=== PATIENT | female | born 1965 | race Caucasian/White ===

== ENCOUNTER 2025-07-11 13:05 | Outpatient (AMB) | payer OTHER, SELFPAY ==
--- OUTSIDE RECORDS SUMMARY | 2025-07-06 10:10 | XMS_ITS | Encounter Summary ---
Author Organization [employer] Address [address] [place] [address] [address] [place] [address] Care Team Providers Care Option Trader Name Role Phone Unavailable Primary Care Provider Unavailabl e Reason for Visit * Reason Comments Routine Cleaning Dental Exam Encounter Details Date Type Department Care Team (Late st Contact Info) Description 07/06/2025 10:10 AM EDT Office Visit [facility] DENTAL [address] [place] [address] Maribell Cordero Encounter for dental examination (Primary Dx); Periodontal disease Social History Tobacco Use Types Packs/Day Years Used Date Smoking Tobacco: Never Smokeless Tobacco: Never Tobacco Cessation:Counseling Given: Not Answered Alcohol Use Standard Drinks/Week Comments Never 0 (1 standard drink = 0.6 oz pur e alcohol) Comments Unknown Sex and Gender Information Value Date Recorded Sex Assigned at Female 04/09/2023 12:08 PM EDT Legal Sex Female 5:35 PM EDT Gender Identity Female 04/09/2023 12:08 PM EDT Sexual Orientation Choose not to disclose 2022 12:08 PM EDT documented as of this encounter Last Filed Vital Signs Vital Sign Reading Time Taken Comments Blood Pressure 138/85 07/06/2025 10:29 AM EDT Pulse 82 07/06/2025 10:29 AM EDT Temperature - - Respiratory Rate - - Oxygen Saturation - - Inhaled Oxygen Concentration - - Weight - - Height - - Body Mass Index - - documented in this encounter Progress Notes * Maribell Cordero - 07/06/2025 10:10 AM EDT Prophy + FLAVIA Subjective: Chief Complaint (CC):--routine cleaning Medical History: Reviewed, Objective: Oral Hygiene Status: Fair Gingival Description: pink inflamed, with mild bleeding on probing Oral Cancer Exam: within normal limits Periodontal Diagnosis: STAGE II grade 2 chronic periodontitis Calculus: Moderate Supra / Subgingival Radiographs Taken: Type - none Caries/Radiographic Findings: as on the chart Vital Signs: BP-138/85 HR-82 Assessment: Risk Factors: None Plan / Treatment Provided: Hygiene Treatment: Full-mouth prophylaxis performed using ultrasonic and hand instruments Teeth polished with Pumice Interdental flossing completed Oral hygiene instructions given and reinforced Brushing technique, and flossing Evaluation/Treatment Planning (Dentist): Dentist not available. Exam not done. Recommendations: FLAVIA Follow-up in 6 months Patient Tolerance: Good Post-Treatment Instructions Given: Yes Patient did great Maribell Cordero documented in this encounter Plan of Treatment Upcoming Encounters Date Type Department Care Team (Late st Contact Info) Description 01/10/2026 2:00 PM EDT Office Visit [facility] DENTAL [address] [place] [phone] Maribell Cordero Scheduled Orders Name Type Priority Associated Diagnoses Orde r Schedule PROPHYLAXIS - ADULT Dental Routine 1 Occ urrences starting 07/06/2025 PERIODIC ORAL EVALUATION - ESTABLISHED PATIENT Dental Routine 1 Occurren carol starting 07/06/2025 documented as of this encounter Procedures Procedure Name Priority Date/Time Associated Diagnosis Comments Full PROPHYLAXIS - ADULT Routine 025 10:10 AM EDT ORAL HYGIENE INSTRUCTIONS Routine 2024 10:10 AM EDT documented in this encounter Visit Diagnoses Diagnosis Encounter for dental examination- Primary Periodontal disease Unspecified gingival and periodontal disease documented in this encounter
--- NOTE | 2025-07-11 13:21 | MHC.PC.OV ---
Vital Signs 07/11/25 13:23 Height 5 ft 5.35 in Weight 163 lb 2 oz BMI 26.9 BP 118/72 Blood Pressure Location Rt brachial Position Sitting Respiration 12 Pulse 88 Pulse Source Pulse Oximeter Temp 97.2 F Temp Source Oral Pulse Oximetry (%) 98 Oxygen Delivery Method Room Air Intake Visit Reasons: CPE? Intake Note: New patient visit Online Project Manager Required: No Allergies No Known Allergies Allergy (Verified 07/11/25 12:41) Tobacco use date assessed: 07/11/25 Dental Screening Dental Screen Date: 07/11/25 Did you have a dental visit in the last 12 months?: Yes Did you have a dental problem in the last 6 months where you did not have access to dental care?: No Was dental information given to patient?: Patient has dentist HPI HPI Comments History of Present Illness Details The patient is a 60 year old female with a past medical history of HRT due to menopause symptoms, anxiety & depression, migraine, post covid fatigue, back pain presenting to [facility] care. Transfer from Dr Newman Frustrated by weight gain over the past few years. Gaining 3-4 pounds a year despite watching calories and biking/spinning Migraine -ceased after starting HRT. Following with Dr Barber at [facility]. Mammo-Jordan Colonoscopy-8 years ago-Jordan. Shingrix-received two doses ROS CONSTITUTIONAL: Denies weight loss, fever and chills. HEENT: Denies changes in vision and hearing. RESPIRATORY: Denies SOB and cough. CV: Denies palpitations and CP GI: Denies abdominal pain, nausea, vomiting and diarrhea. : Denies dysuria and urinary frequency. MSK: Denies new myalgia and joint pain. SKIN: Denies rash and pruritus. NEUROLOGICAL: Denies headache PSYCHIATRIC: Denies recent changes in mood. PHYSICAL EXAM: GENERAL: Alert and oriented x 3. NAD EYES: EOMI. Anicteric. HENT: Moist mucous membranes. No scleral icterus. No cervical lymphadenopathy. LUNGS: Clear to auscultation bilaterally. CARDIOVASCULAR: Regular rate and rhythm. No murmur. No JVD. ABDOMEN: Soft, non-tender +bs EXTREMITIES: No edema. Non-tender. SKIN: No rashes or lesions. Warm. NEUROLOGIC: No focal neurological deficits. CN II-XII grossly intact PSYCHIATRIC: Cooperative. Appropriate mood and affect [facility] Surgical History (Updated 07/11/25 @ 13:27 by Ashlee Galvan CMA) History of tonsillectomy No pertinent past surgical history Family History (Updated 07/11/25 @ 13:30 by Ashlee Galvan CMA) Mother Stroke Cardiovascular disease Father Heart attack Cardiovascular disease Brother Heart attack Stroke Maternal Grandmother Cardiovascular disease Maternal Grandmother No problems noted. 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 Current occupational exposures/hazards: No Cognitive needs: No Hearing needs: No Vision needs: Yes (glasses) Questionnaire Thrive Questionnaire Date Thrive assessed: 07/09/25 I am a: Patient What is your living situation today?: I have a steady place to live Within the past 12 months, did the food you bought not last and you didn't have the money to get more?: Never true Within the past 12 months, did you worry whether your food would run out before you got money to buy more?: Never true Do you have trouble paying for medicines?: No Do you have trouble getting transportation to medical appointments?: No Do you have trouble paying your heating and electricity bill?: No Do you have trouble taking care of your child, family member or friend?: No Do you have trouble with day-to-day activities such as bathing, preparing meals, shopping, managing finances, etc.?: No Are you currently unemployed and looking for a job?: No Are you interested in more education?: No Please select the resources that you would like help with: None Currently or been in a relationship where the following occur: No concerns reported THRIVE Score: 0 AUDIT C Alcohol Use Questionnaire (AUDIT-C) 1. How often do you have a drink containing alcohol?: 2-3 times a week 2. How many drinks containing alcohol do you have on a typical day when you are drinking?: 1 or 2 3. How often do you have six or more drinks on one occasion?: Never Total Score: 3 KASSI-7 AMB Questionnaire KASSI-7 Date KASSI - 7 assessed: 07/11/25 Feeling nervous, anxious, or on edge: 0 = Not at all Not being able to stop or control worryin = Not at all Worrying too much about different things: 0 = Not at all Trouble relaxin = Not at all Being so restless that it is hard to sit still: 0 = Not at all Becoming easily annoyed or irritable: 0 = Not at all Feeling afraid as if something awful might happen: 0 = Not at all Total KASSI-7 score (0-4 normal; 5-9 mild; 10-14 moderate; 15-21 severe): 0 Source: Developed by Drs. Jacobo Riley, Veronica He, James Felder and colleagues, with an educational samuel from [employer]. KASSI-7 Assessment Billing KASSI-7 Assessment Tool: KASSI-7 Assessment 79650 Physical exam (Primary Care) Vital Signs: Last Vital Signs Temp 97.2 F 07/11/25 13:23 Pulse 88 07/11/25 13:23 Resp 12 07/11/25 13:23 BP 118/72 07/11/25 13:23 Pulse Ox 98 07/11/25 13:23 Oxygen Delivery Method Room Air 07/11/25 13:23 BMI result Body Mass Index 26.9 Tobacco/Smoking Status: Tobacco use Status Tobacco use date assessed 07/11/25 07/11/25 13:31 Patient Tobacco Use Status Never used Tobacco 07/11/25 13:31 e-Cigarette/Vaping Use Never Used 07/11/25 13:31 Thrive Assessment: Date of Thrive Assessment Date Thrive assessed 07/09/25 07/11/25 13:31 Currently or been in a relationship where the following occur: No concerns reported Coding Level of Care Code New Pt Level 4 (38387) Complex EM visit Add On G2211 Diagnoses Weight gain R63.5 Menopause syndrome N95.1 History of migraine Z86.69 Additional Codes KASSI-7 Assessment Billing - KASSI-7 Assessment Tool: KASSI-7 Assessment 58104 ([id number]) Assessment & Plan Assessment & Plan (1) Weight gain: Code(s): R63.5 - Abnormal weight gain Category: Medical (2) Menopause syndrome: Code(s): N95.1 - Menopausal and female climacteric states Category: Medical (3) History of migraine: Code(s): Z86.69 - Personal history of other diseases of the nervous system and sense organs Category: Medical Plan 60 year old female presenting to [facility] care Past medical, surgical, social reviewed Weight gain-Discussed increasing exercise or cutting back slightly on calories. Declines glp, phentermine Labs ordered Mammo UTD per patient. follows with street engineer Orders: Orders Lipid Panel Today M54.50 - Low back pain, unspecified, N95.1 - Menopausal and female climacteric states, R63.5 - Abnormal weight gain, Z13.220 - Encounter for screening for lipoid disorders, Z86.69 - Personal history of other diseases of the nervous system and sense organs TSH reflex Free T4 Today M54.50 - Low back pain, unspecified, N95.1 - Menopausal and female climacteric states, R63.5 - Abnormal weight gain, Z13.220 - Encounter for screening for lipoid disorders, Z86.69 - Personal history of other diseases of the nervous system and sense organs Complete Blood Count Auto Diff Today M54.50 - Low back pain, unspecified, N95.1 - Menopausal and female climacteric states, R63.5 - Abnormal weight gain, Z13.220 - Encounter for screening for lipoid disorders, Z86.69 - Personal history of other diseases of the nervous system and sense organs Comprehensive Met. Panel Today M54.50 - Low back pain, unspecified, N95.1 - Menopausal and female climacteric states, R63.5 - Abnormal weight gain, Z13.220 - Encounter for screening for lipoid disorders, Z86.69 - Personal history of other diseases of the nervous system and sense organs Hemoglobin A1c Today M54.50 - Low back pain, unspecified, N95.1 - Menopausal and female climacteric states, R35.89 - Other polyuria, R63.5 - Abnormal weight gain, Z13.220 - Encounter for screening for lipoid disorders, Z86.69 - Personal history of other diseases of the nervous system and sense organs
[2025-07-11 13:23] VITALS: BP 118/72; PULSE 88; RESP 12; TEMP 36.2; O2SAT 98; BMI 26.9
--- OUTSIDE RECORDS SUMMARY | 2025-07-11 15:21 | XMS_ITS | Encounter Summary ---
Author Organization [employer] Address [address] [place] [address] [address] [place] [address] Care Team Providers Care Senior Editor Name Role Phone Unavailable Primary Care Provider Unavailabl e Encounter Details Date Type Department Care Team (Latest Contact Info) Description 01/12/2019 Abstract [facility]VERSION[facility] Dental, Provider, DDS Social History Tobacco Use Types Packs/Day Years Used Date Smoking Tobacco: Never Assessed Comments Unknown Sex and Gender Information Value Date Recorded Sex Assigned at Female 04/09/2023 12:08 PM EDT Legal Sex Female 5:35 PM EDT Gender Identity Female 04/09/2023 12:08 PM EDT Sexual Orientation Choose not to disclose 2022 12:08 PM EDT documented as of this encounter Plan of Treatment Upcoming Encounters Date Type Department Care Team (Late st Contact Info) Description 01/10/2026 2:00 PM EDT Office Visit [facility] DENTAL [address] [place] [id number] Maribell Cordero documented as of this encounter Visit Diagnoses Not on filedocumented in this encounter
--- OUTSIDE RECORDS SUMMARY | 2025-07-11 15:21 | XMS_ITS | Clinical Summary ---
Author Organization [employer] Address [address] [place] [address] [address] [place] [address] Care Team Providers Care Lube Attendant Name Role Phone Unavailable Primary Care Provider Unavailabl e Allergies No known active allergies Medications estradiol (Climara) 0.05 MG/24HR apply 1 PATCH topically TO SKIN ONCE A WEEK Active norethindrone (Aygestin) 5 MG tablet Take 2.5 mg by mouth Once per day. Active Encounters Date Type Department Care Team Description 07/06/2025 10:10 AM EDT Office Visit [facility] DENTAL [address] [place] [id number] Maribell Cordero Encounter for dental examination (Primary Dx); Periodontal disease from Last 3 Months Social History Tobacco Use Types Packs/Day Years [...] not to disclose 2022 12:08 PM EDT Last Filed Vital Signs Vital Sign Reading Time Taken Comments Blood Pressure 138/85 07/06/2025 10:29 AM EDT Pulse 82 07/06/2025 10:29 AM EDT Temperature - - Respiratory Rate - - Oxygen Saturation - - Inhaled Oxygen Concentration - - Weight - - Height - - Body Mass Index - - Plan of Treatment Upcoming Encounters Date Type Department Care Team (Late st Contact Info) Description 01/10/2026 2:00 PM EDT Office Visit [facility] DENTAL [address] [place] [address] Maribell Cordero Health Maintenance Due Date Last Done Comments CT Colonography 1967 Colonoscopy 1967 Colorectal Cancer Screening 1967 Depression Screening 1967 FIT DNA/Cologuard 1967 FIT 1967 FOBT 1967 HIV Screening 1967 SDOH Screening 1967 Sigmoidoscopy 1967 Disability Screening 1967 Alcohol/Substance Use Screening 1979 Hepatitis C Screening 1985 DTaP/Tdap/Td Vaccines (1 - Tdap) 1986 Hepatitis B Vaccines (1 of 3 - 19+ 3-dose series) 1986 Pap Smear 1988 Cervical Cancer Screening 1997 HPV/Cotest 1997 Mammogram 2007 Pneumococcal Vaccine: 50+ Years (1 of 1 - PCV) 2017 Dental X-Ray: Full Mouth 11/29/2023 11/28/2020, 10/03 Dental Oral Exam 06/22/2025 12/22/2024, , 10/21/2023, Additional history exists Influenza Vaccine (#1) 2025 4, 09/01/2023, 08/21/2022, Additional history exists Dental X-Ray: Bitewings 12/23/2025 12/22/19 25, 04/17/2023, 12/12/2021, Additional history exists Dental Prophylaxis 01/04/2026 07/06/2025, 0 12/22/2024, 04/22/2024, Additional history exists Tobacco Screening 07/06/2026 07/06/2025 RSV Patients and Patients Aged 60 years or older (1 - 1-dose 75+ series) 2042 Zoster Vaccines Completed 12/14/2023, 07/15/2023 COVID-19 Vaccine Completed 10/21/2024, 03/2023, 11/22/2022, Additional history exists HIB Vaccines Aged Out No longer eligi ble based on patient's age to complete this topic HPV Vaccines Aged Out No longer eligi ble based on patient's age to complete this topic Hepatitis A Vaccines Aged Out No long er eligible based on patient's age to complete this topic IPV Vaccines Aged Out No longer eligi ble based on patient's age to complete this topic Meningococcal B Vaccine Aged Out No l onger eligible based on patient's age to complete this topic Meningococcal Vaccine Aged Out No devora porsche eligible based on patient's age to complete this topic RSV under 20 months Aged Out No longe r eligible based on patient's age to complete this topic Rotavirus Vaccines Aged Out No longer eligible based on patient's age to complete this topic Procedures Procedure Name Priority Date/Time Associated Diagnosis Comments ORAL HYGIENE INSTRUCTIONS Routine 2024 10:10 AM EDT Full PROPHYLAXIS - ADULT Routine 025 10:10 AM EDT BITEWINGS - 4 RADIOGRAPHIC IMAGES Routine 12/22/2024 3:00 PM EST PERIODIC ORAL EVALUATION - ESTABLISHED PATIENT Routine 12/22/2024 3:00 PM EST INTRAORAL - COMPLETE SERIES OF RADIOGRAPHIC IMAGES Routine 11/28/2020 12:00 AM EST from Last 3 Months or Most Recently Relevant to Health Maintenance Insurance DENTAL - [facility] PARTIAL (MEDICAID) DENTAL - [facility]
--- OUTSIDE RECORDS SUMMARY | 2025-07-11 15:21 | XMS_ITS | Encounter Summary ---
Author Organization [employer] Address [address] [place] [address] [address] [place] [address] Care Team Providers Care Fence Erector Supervisor Name Role Phone Unavailable Primary Care Provider Unavailabl e Encounter Details Date Type Department Care Team (Latest Contact Info) Description 05/24/2020 [facility]VERSION[facility] Dental, Provider, DDS Social [...] Description 01/10/2026 2:00 PM EDT Office Visit [facility] DENTAL [address] [place] [phone] Maribell Cordero documented as of this encounter Visit Diagnoses Not on filedocumented in this encounter
--- OUTSIDE RECORDS SUMMARY | 2025-07-11 15:21 | XMS_ITS | Encounter Summary ---
Author Organization [employer] Address [address] [place] [address] [address] [place] [address] Care Team Providers Care Retail Zone Specialist Name Role Phone Unavailable Primary Care Provider Unavailabl e Encounter Details Date Type Department Care Team (Latest Contact Info) Description 07/20/2019 [facility] CONVERSION[facility] Dental, Provider, DDS Social [...] Description 01/10/2026 2:00 PM EDT Office Visit [facility] DENTAL [address] [place] [phone] Maribell Cordero documented as of this encounter Visit Diagnoses Not on filedocumented in this encounter
--- OUTSIDE RECORDS SUMMARY | 2025-07-11 15:22 | XMS_ITS | Encounter Summary ---
Author Organization [employer] Address [address] [place] [address] [address] [place] [address] Care Team Providers Care Enterprise Cloud Architect Name Role Phone Unavailable Primary Care Provider Unavailabl e Encounter Details Date Type Department Care Team (Latest Contact Info) Description 06/05/2021 [facility] CONVERSION[facility] Dental, Provider, DDS Social [...] Description 01/10/2026 2:00 PM EDT Office Visit [facility] DENTAL [address] [place] [address] Maribell Cordero documented as of this encounter Visit Diagnoses Not on filedocumented in this encounter
--- OUTSIDE RECORDS SUMMARY | 2025-07-11 15:22 | XMS_ITS | Encounter Summary ---
Author Organization [employer] Address [address] [place] [address] [address] [place] [address] Care Team Providers Care Iap Displays Analyst Name Role Phone Unavailable Primary Care Provider Unavailabl e Encounter Details Date Type Department Care Team (Latest Contact Info) Description 12/12/2021 [facility] CONVERSION[facility] Dental, Provider, DDS Social [...] Description 01/10/2026 2:00 PM EDT Office Visit [facility] DENTAL [address] [place] [address] Maribell Cordero documented as of this encounter Visit Diagnoses Not on filedocumented in this encounter
--- OUTSIDE RECORDS SUMMARY | 2025-07-11 15:22 | XMS_ITS | Encounter Summary ---
Author Organization [employer] Address [address] [place] [address] [address] [place] [address] Care Team Providers Care Resource Program Teacher Name Role Phone Unavailable Primary Care Provider Unavailabl e Encounter Details Date Type Department Care Team (Latest Contact Info) Description 11/28/2020 [facility] CONVERSION[facility] Dental, Provider, DDS Social [...] Description 01/10/2026 2:00 PM EDT Office Visit [facility] DENTAL [address] [place] [address] Maribell Cordero documented as of this encounter Visit Diagnoses Not on filedocumented in this encounter
== END 2025-07-11 13:55 | disposition home or self-care (01) ==
LOC: HO.HMCFM 13:05
PROVIDERS: PCP Internal Medicine; Visit Provider Internal Medicine
DX: R63.5 Abnormal weight gain (principal); N95.1 Menopausal and female climacteric states; Z86.69 Personal history of other diseases of the nervous system and sense organs

== ENCOUNTER 2025-07-11 13:05 | Outpatient (REF) | payer OTHER, SELFPAY ==
[2025-07-11 18:25] LABS: MANUAL DIFF FLAG NO
[2025-07-11 18:36] LABS: Hematocrit 41.7 % (37.0-47.0); Hemoglobin 13.5 g/dl (12.0-16.0); Imm Gran Abs Auto 0.02 X10*3/uL (0.00-0.03); Imm Gran Pct Auto 0.2 % (0.0-0.4); Lymphocytes Absolute Auto 2.3 X10*3/uL (1.2-4.9); Mean Corpuscular HGB Conc 32.4 g/dl (31.0-35.0); Mean Corpuscular Hemoglobin 29.9 pg (27.0-33.0); Mean Corpuscular Volume 92.5 fL (80.0-98.0); NRBC Abs Auto 0.000 X10*3/uL (0.0-0.012); NRBC Pct Auto 0.0 /100WBC (0.0-0.2); Platelet Count 297 X10*3/uL (160-400); Red Blood Count 4.51 X10*6/uL (4.20-5.50); White Blood Count 8.7 X10*3/uL (4.8-10.8)
[2025-07-11 18:54] LABS: Alanine Aminotransferase 23 U/L (0-31); Albumin Level 4.8 g/dL (3.5-5.0); Alkaline Phosphatase 67 U/L (39-117); Anion Gap 11 (12-20); Aspartate Amino Transferase 28 U/L (5-31); Blood Urea Nitrogen 14 mg/dL (9-16); Calcium 9.5 mg/dL (8.4-10.2); Carbon Dioxide 25 mmol/L (22-29); Chloride 107 mmol/L (96-108); Cholesterol 168 mg/dL (<200); Estimated Glomerular Filt Rate > 60; HDL Cholesterol 51 mg/dL (>40); Potassium 4.1 mmol/L (3.3-5.1); Sodium 139 mmol/L (135-145); Total Protein 7.3 g/dL (6.5-8.0); Triglycerides 83 mg/dL (<150)
== END 2025-07-11 13:06 | disposition home or self-care (01) ==
LOC: HO.WFDLDS 13:05
PROVIDERS: PCP Internal Medicine; Visit Provider Internal Medicine
DX: Z13.220 Encounter for screening for lipoid disorders (principal); R63.5 Abnormal weight gain; M54.50 Low back pain, unspecified; N95.1 Menopausal and female climacteric states; R35.89 Other polyuria; Z86.69 Personal history of other diseases of the nervous system and sense organs
CPT/HCPCS: 36415; 80053; 80061; 83036; 84443; 85025; 96127